=== PATIENT | male | born 1955 | race Caucasian/White ===

== ENCOUNTER → 2019-06-29 | Outpatient (CLI) | payer OTHER | END | disposition home or self-care (01) | LOC: RAH 10:57 | PROVIDERS: ATTEND Family Medicine | DX: J33.8 Other polyp of sinus (principal) | CPT/HCPCS: 70551 ==

== ENCOUNTER → 2019-07-30 | Outpatient (CLI) | payer OTHER ==
[~2019-07-30] MED LIST: GADODIAMIDE 10 MMOL/20 ML VIAL IV ONE
== END | disposition home or self-care (01) ==
LOC: RAH 07:27
PROVIDERS: ATTEND Family Medicine
DX: G93.9 Disorder of brain, unspecified (principal); R20.0 Anesthesia of skin
CPT/HCPCS: 70553; A9579

== ENCOUNTER → 2019-10-27 | Outpatient (CLI) | payer OTHER | END | disposition home or self-care (01) | LOC: RAH 08:42 | PROVIDERS: ATTEND Family Medicine | DX: I63.9 Cerebral infarction, unspecified (principal) | CPT/HCPCS: 93306; 93356; 93880 ==

== ENCOUNTER 2022-07-20 11:14 | Emergency (ER) | payer OTHER ==
[~2022-07-20] VITALS: Ht 180.3 cm; Wt 115.2 kg
[2022-07-20] MEDS ORDERED: IPRATROPIUM/ALBUTEROL SULFATE 3 ML SOLUTION IH ONE (13:30)
[2022-07-20] MEDS ORDERED: ONDANSETRON 4MG INJ IVP ONE (13:30)
[2022-07-20 14:08] LABS: BASOPHILS % (AUTO) 0.7 % (0.0-5.0); EOSINOPHILS % (AUTO) 0.8 % (0.0-8.0); HEMATOCRIT 41.9 % (42-54); LYMPHOCYTES % (AUTO) 14.9 % (21.0-51.0); MEAN CORPUSCULAR HEMOGLOBIN 31.5 pg (27.0-33.0); MEAN CORPUSCULAR HGB CONC 34.6 g/dL (32.0-36.0); MEAN CORPUSCULAR VOLUME 90.9 fL (79-99); MONOCYTES % (AUTO) 4.7 % (3.0-13.0); PLATELET COUNT (AUTO) 222 K/uL (130-400); RED BLOOD CELL COUNT(AUTO) 4.61 MIL/uL (4.50-6.20); RED CELL DISTRIBUTION WIDTH 12.4 % (11.0-15.5); WHITE BLOOD COUNT (AUTO) 9.5 K/uL (4.8-10.8)
[2022-07-20 14:18] LABS: CREATININE 0.9 mg/dL (0.5-1.5); POTASSIUM 5.3 mmol/L (3.5-5.1)
[2022-07-20 14:22] LABS: ALBUMIN 3.6 g/dL (3.5-5.0); TOTAL PROTEIN, SERUM 7.5 g/dL (6.0-8.3)
[2022-07-20] MEDS ORDERED: DEXAMETHASONE SOD PHOSPHATE 4 MG/ML 1ML VIAL IM ONE (15:00)
[2022-07-20 15:14] VITALS: BP 137/81
[2022-07-20] MEDS ORDERED: AZIT1PAC7 PO (16:25)
[2022-07-20] MEDS ORDERED: FLUT15.845 NS (16:25)
[2022-07-20] MEDS ORDERED: FEXO180T94 PO (16:25)
[2022-07-20] MEDS ORDERED: IPRA3AMP24 IH (16:26)
== END 2022-07-20 16:35 | disposition home or self-care (01) ==
LOC: EDH 11:14
DX: J32.9 Chronic sinusitis, unspecified (principal); R06.2 Wheezing; R05.9 Cough, unspecified; R06.02 Shortness of breath; Z20.822 Contact with and (suspected) exposure to COVID-19
CPT/HCPCS: 99285; 96374; 71045; 87635; 80053; 85025; 87880; 87804 ×2; 36415; 96372; 93005; 94640 ×2; J1100; C9803; J2405

== ENCOUNTER 2023-06-30 06:56 | Day surgery (SDC) | payer OTHER ==
[2023-06-27 11:29] LABS: BASOPHILS # (AUTO) 0.07 K/uL (0.00-0.20); BASOPHILS % (AUTO) 0.6 % (0.0-5.0); EOSINOPHILS # (AUTO) 0.07 K/uL (0.00-0.70); EOSINOPHILS % (AUTO) 0.6 % (0.0-8.0); HEMATOCRIT 38.7 % (42-54); IMMATURE GRANULOCYTE ABSOLUTE 0.06 K/uL (0-1); LYMPHOCYTES # (AUTO) 1.7 K/uL (1.0-4.8); MEAN CORPUSCULAR HEMOGLOBIN 31.7 pg (27.0-33.0); MEAN CORPUSCULAR HGB CONC 33.6 g/dL (32.0-36.0); MEAN CORPUSCULAR VOLUME 94.4 fL (79-99); MONOCYTES # (AUTO) 1.8 K/uL (0.1-1.0); MONOCYTES % (AUTO) 14.6 % (3.0-13.0); NEUTROPHILS # (AUTO) 8.4 K/uL (1.8-7.7); NEUTROPHILS % (AUTO) 69.7 % (40.0-77.0); PLATELET COUNT (AUTO) 189 K/uL (130-400); RED CELL DISTRIBUTION WIDTH 12.4 % (11.0-15.5)
[2023-06-27 11:41] LABS: CREATININE 1.5 mg/dL (0.5-1.5); POTASSIUM 3.9 mmol/L (3.5-5.1)
[2023-06-27 11:42] VITALS: BP 138/75; PULSE 95; RESP 18
[~2023-06-30] VITALS: Ht 180.3 cm; Wt 114.9 kg
[2023-06-30] VITALS (16 sets, daily range): BP systolic 109–143; BP diastolic 50–79; PULSE 56–83; RESP 13–18
[~2023-06-30 06:56] MED LIST changes: +ASCO100031 PO; -GADODIAMIDE 10 MMOL/20 ML VIAL IV ONE; +IBUP-2070 PO; +MECL-302 PO; +TADA5TAB13 PO; +ZINC PO
[2023-06-30] MEDS: CEFAZOLIN SODIUM 2 GM VIAL ONE ×2 (07:14→08:30)
[2023-06-30] MEDS ORDERED: LACTATED RINGERS 1000ML 1,000 ML IV ONE (07:14)
[2023-06-30] MEDS ORDERED: FAMOTIDINE 20MG VIAL IV ONE (07:36)
[2023-06-30] MEDS ORDERED: BUPIVACAINE/PF 0.5% 30ML VIAL ONE (07:36)
[2023-06-30] MEDS ORDERED: HYDROMORPHONE 1 MG INJ ONE (07:36)
[2023-06-30] MEDS ORDERED: PHENYLEPHRINE HCL 10 MG/ML 1ML VIAL IV ONE (07:38)
[2023-06-30] MEDS ORDERED: SUCCINYLCHOLINE CHLORIDE 20 MG/ML 10 ML VIAL ONE (07:39)
[2023-06-30] MEDS ORDERED: LIDOCAINE PF 100MG/5ML (2%) SYRINGE 5ML ONE (07:39)
[2023-06-30] MEDS ORDERED: ROCURONIUM 10MG/1ML SYR 10 MG/ML ML ONE (07:40)
[2023-06-30] MEDS ORDERED: GLYCOPYRROLATE 1 MG/5 ML SYRINGE ONE (07:40)
[2023-06-30] MEDS ORDERED: PROPOFOL 10 MG/ML 20ML VIAL IV ONE ×2 (07:40→08:53)
[2023-06-30] MEDS ORDERED: FENTANYL CITRATE PF 50 MCG/1 ML 2ML VIAL ONE (07:40)
[2023-06-30] MEDS ORDERED: MIDAZOLAM HCL 1 MG/ML 2ML VIAL ONE (07:47)
[2023-06-30] MEDS ORDERED: ONDANSETRON 4MG INJ ONE (08:06)
[2023-06-30] MEDS ORDERED: NEOSTIGMINE 5MG/5ML SYR IV ONE (09:02)
== END 2023-06-30 10:50 | disposition home or self-care (01) ==
LOC: DAH 06:56
PROVIDERS: ATTEND Surgery
DX: K42.0 Umbilical hernia with obstruction, without gangrene (principal); E66.9 Obesity, unspecified; Z98.890 Other specified postprocedural states; Z98.52 Vasectomy status; Z87.891 Personal history of nicotine dependence; Z68.34 Body mass index [BMI] 34.0-34.9, adult
CPT/HCPCS: 80048; 85025; 36415; 93005; 49594; A6260; A4663; A4452; C1781; J7120; J3490 ×2; J3010; J1170; J2710; J0330; J2001; J2250; J2704 ×2; J2405; J0665; J2371; J0690; A4930 ×2; A4215; A4223; A4222; A4221; A4600